=== PATIENT | male | born 1995 | race Caucasian/White ===

== ENCOUNTER 2023-01-12 13:40 | Emergency (ER) | payer OTHER ==
--- OUTSIDE RECORDS SUMMARY | 2023-01-12 13:42 | XMS REPORT | Continuity of Care Document ---
:1995 Author Organization [facility] t Address [address] [place] [address] Care Team Providers Name Role Phone JO EARL Primary Care Physician Unavailable YIMI EARL Attending Clinician Unavailable Krzysztof Tinoco PT Attending Clinician Unavailable Yimi Earl MD Attending Clinician Agustina Gerardo MD Attending Clinician Jo Dinh Attending Clinician JO EARL Attending Clinician Unavailable Radha Suarez Attending Clinician Unknown, Attending Attending Clinician Unavailable UNKNOWN, ATTENDING Attending Clinician Unavailable RADHA LARSEN Attending Clinician Unavailable Payers Payer Name Policy Type Policy Number Effective Date Expiration Date [facility] [id number] 2019 00:00:00 [facility] [id number] 2019 00:00:00 Problems Condition Condition Condition Status Onset Resolution Last Treating Co mments Source Name Details Category Date Date Treatment Clinician Date Low back Low back Disease Active Unive rs pain pain 7-18 ity of 00:00: [place] 00 [facility] Decreased Decreased Disease Active Uni vers strength strength 7-18 ity of of lower of lower 00:00: [place] extremity extremity 00 Medi jag Branch Decreased Decreased Disease Active Uni vers ROM of ROM of 7-18 ity of lower lower 00:00: [place] extremity extremity 00 [facility] jag Branch Smoker Smoker Disease Active Univers 1-15 ity of 00:00: [place] 00 Medical Branch Allergies, Adverse Reactions, Alerts Allergy Allergy Status Severity Reaction(s) Onset Inactive Treating Comm ents Source Name Type Date Date Clinician EGG DRUG Active ITCHING Univers INGREDI - ity of 00:00: [place] 00 Medical Branch Egg Propensi Active Itching 2019-0 Univers ty to -02 ity of adverse 00:00: [place] reaction 00 Medical s Branch KAOPECTA DRUG Active Hives Univers TE 5-14 ity of (KAOLIN- 00:00: [place] PECTIN) 00 Medical Branch Kaopecta Propensi Active Hives 0 Univer s te ty to 5-14 ity of (Kaolin- adverse 00:00: [place] Pectin) reaction 00 Medical s Branch Social History Social Habit Start Date Stop Date Quantity Comments Source History of 2016-12-09 Cigarette Smoker Universi ty of tobacco use 00:00:00 [place] [facility] History SDOH University o f Alcohol Frequency [place] M edical [facility] History SDOH University o f Alcohol Std [place] [facility] Drinks Branch History SDOH University o f Alcohol Binge [place] [facility] Alcohol intake 2022-04-25 2022-04-25 Current drinker Unive rsity of 00:00:00 00:00:00 of alcohol [place] [facility] (finding) Branch Tobacco use and 2022-04-12 2022-04-12 Smokeless tobacco Un iversity of exposure 00:00:00 00:00:00 non-user [facility] Alcohol Comment 2022-04-12 2022-04-12 occas Universit y of 00:00:00 00:00:00 [facility] Tobacco Comment 2022-04-12 2022-04-12 vapes daily Universi ty of 00:00:00 00:00:00 [facility] Sex [birth year] Universit y of 00:00:00 00:00:00 [facility] Smoking Status Start Date Stop Date Source Smokes tobacco daily 2022-04-12 00:00:00 Univers ity of [facility] Medications Ordered Filled Start Stop Current Ordering Indication Dosage Frequency Signature Comments Components Source Medication Medication Date Date Medication? Clinician (SIG) Name Name No known No No known Unive rs medications 04-25 medication it y of 11:52: s [place] 29 Medical Branch Procedures This patient has no known procedures. Encounters Start End Encounter Admission Attending Care Care Encounter Source Date/Time Date/Time Type Type Clinicians Facility Department ID 2022-06-19 Outpatient [facility] [id number] [place] 14:09:30 [id number] Health 2022-06-25 2022-06-25 Outpatient [facility] [id number] Univers 14:30:00 14:30:00 YIMI orantes [facility] 2022-06-21 2022-06-21 Outpatient [facility] [id number] Univers 09:00:00 09:00:00 YIMI orantes [facility] 2022-06-11 2022-06-11 Outpatient [facility] [id number] Univers 07:30:00 08:36:59 YIMI orantes [facility] 2022-06-11 2022-06-11 Ancillary Krzysztof Tinoco [facility] [id number] Univers 07:30:00 08:36:59 Visit Yimi Earl [id number] ity of [place] [id number] [facility] [id number] [address] ([facility]) 2022-06-11 2022-06-11 Outpatient [place] [id number] Univers 07:30:00 07:30:00 YIMI orantes [facility] 2022-05-11 2022-05-11 [facility] [id number] Univers 00:00:00 00:00:00 Agustina MULTISPEC [id number] ity of IALTY 4.2.7.2.686 [facility] [id number] [address] [facility] 2022-04-30 2022-04-30 Outpatient Cor[facility] [id number] Univers 08:00:00 08:00:00 YIMI orantes [facility] 2022-04-25 2022-04-25 [facility] [id number] Univers 11:58:32 23:59:00 Encounter Jo [facility] [id number] ity of [id number] [place] [id number] [facility] 809 Branch 2022-04-25 2022-04-25 [facility] [id number] Univers 11:58:11 23:59:00 Encounter Jo [facility] [id number] ity of [place] [id number] [place] [id number] [facility] 809 Branch 2022-04-25 2022-04-25 Outpatient R [facility] [id number] Univers 11:58:11 23:59:00 JO orantes [facility] 2022-04-25 2022-04-25 Office [facility] [id number] Univers 11:30:00 12:00:00 Visit Jo [facility] [id number] it y of [place] [id number] - [id number] [facility] 314 Branch 2022-04-25 2022-04-25 Outpatient R [facility] [id number] Univers 11:58:32 11:58:32 JO [facility] 2022-04-25 2022-04-25 Telephone [facility] [id number] Univers 00:00:00 00:00:00 Jo [facility] [id number] it y of [id number] - [id number] [facility] 314 Branch 2022-04-22 2022-04-22 [facility] [id number] Univers 15:00:00 15:15:00 Care Unknown, Attending ARMEN [id number] ity of [facility] 4.2.7.2.686 [facility] [id number] [place] [address] [address] [place] 2022-04-22 2022-04-22 Outpatient R UNKNOWN, ATTEND[facility] [id number] Univers 15:00:00 15:00:00 [facility] 2022-04-12 2022-04-12 Office Rajat [facility] [id number] Univers 11:00:00 11:30:00 Visit Jo [facility] [id number] emilia jolly [facility] [id number] [place] - [id number] [address] 2022-04-12 2022-04-12 Outpatient R [facility] [id number] [facility] 11:00:00 11:00:00 JO orantes [facility] Results This patient has no known results.
[2023-01-12] MEDS ORDERED: dexAMETHasone 10 MG/ML VIAL ONE (14:10)
[2023-01-12] MEDS ORDERED: HYDROCODONE/APAP 7.5/325 MG TAB ONE (14:11)
--- NOTE | 2023-01-12 14:17 | EDPHYS ---
Physician Documentation [facility] Name: Jason Barber Age: 27 yrs Sex: Male : 1995 Arrival Date: 01/12/2023 Time: 13:41 Bed 19 Private MD: ED Physician Benny Troncoso HPI: 01/12 14:13 This 27 yrs old Male presents to ER via Ambulatory with complaints of Back Pain. kb 14:14 The patient presents with pain that is acute. The symptoms are located in the left low kb back. The pain radiates to the left leg. The problem was sustained without known cause. Onset: The symptoms/episode began/occurred this morning. Modifying factors: The patient symptoms are alleviated by nothing, the patient symptoms are aggravated by any movement. Associated signs and symptoms: Pertinent positives: tingling, Pertinent negatives: incontinence, numbness, urinary retention. Severity of symptoms: At their worst the symptoms were moderate, in the emergency department the symptoms are unchanged. The patient has not experienced similar symptoms in the past. The patient has not recently seen a physician. Historical: - PMHx: 13:55 L5 S1 disc herniation; aa5 - PSHx: 13:55 None; aa5 - Immunization history:: Adult Immunizations unknown. - Social history:: Smoking status: Reported history of juuling and/or vaping. ROS: 14:13 Constitutional: Negative for fever, chills, and weight loss. kb 14:13 Abdomen/GI: Positive for nausea and vomiting, Negative for abdominal pain. 14:13 Back: Positive for pain at rest, pain with movement, radiated pain, of the left low back. 14:13 All other systems are negative. Exam: 14:13 Constitutional: This is a well developed, well nourished patient who is awake, alert, kb and in no acute distress. Head/Face: Normocephalic, atraumatic. ENT: Moist Mucous membranes Cardiovascular: Regular rate and rhythm with a normal S1 and S2. No gallops, murmurs, or rubs. No pulse deficits. Respiratory: Respirations even and unlabored. No increased work of breathing. Talking in full sentences Abdomen/GI: Soft, non-tender. No distention Skin: Warm, dry with normal turgor. Normal color. MS/ Extremity: Pulses equal, no cyanosis. Neurovascular intact. Full, normal range of motion. Neuro: Awake and alert, GCS 15, oriented to person, place, time, and situation. Moves all extremities. Normal gait. 14:13 Back: pain, that is moderate, of the left low back, ROM is normal, normal spinal alignment noted. Vital Signs: 13:47 BP 135 / 75; Pulse 105; Resp 16 S; Temp 98.5(TE); Pulse Ox 98% on R/A; Weight 76.2 kg aa5 (R); Height 5 ft. 7 in. (170.18 cm) (R); 13:47 Body Mass Index 26.31 (76.20 kg, 170.18 cm) aa5 MDM: 13:47 Patient medically screened. kb 14:13 Data reviewed: vital signs, nurses notes. kb 14:14 Differential diagnosis: strain, sciatica, Herniated disc. Counseling: I had a detailed kb discussion with the patient and/or guardian regarding: the historical points, exam findings, and any diagnostic results supporting the discharge/admit diagnosis, the need for outpatient follow up, a family practitioner, to return to the emergency department if symptoms worsen or persist or if there are any questions or concerns that arise at home. 14:15 ED course: Patient is a 27-year-old male with a history of disc herniation that kb presents for left low back pain that radiates down left leg with some tingling down the leg. Denies numbness, bowel or bladder dysfunction. On exam tenderness to left low back/upper buttock, no vertebral tenderness. Full range of motion of all extremities. Ambulates with steady gait. Educated on return precautions, verbal understanding received.. Administered Medications: 14:15 Drug: [place] (HYDROcodone-acetaminophen) (7.5 mg-325 mg) 1 tabs Route: PO; kr3 14:35 Follow up: Response: No adverse reaction; RASS: Alert and Calm (0) kr3 14:15 Drug: Decadron (dexamethasone) 10 mg Route: IM; Site: left gluteus; kr3 14:35 Follow up: Response: No adverse reaction kr3 Disposition: 14:38 Co-signature as Attending Physician, Benny Troncoso MD I reviewed the patient's care rt provided by the Advanced Practice Provider and agree with the diagnosis and treatment plan. Disposition Summary: 02/18/23 14:16 Discharge Ordered Location: Home kb Condition: Stable kb Diagnosis - Sciatica, left side kb Followup: kb - With: Emergency Department - When: As needed - Reason: Worsening of condition Followup: kb - With: Private Physician - When: 2 - 3 days - Reason: Recheck today's complaints, Continuance of care, Re-evaluation by your physician Discharge Instructions: - Discharge Summary Sheet kb - Sciatica, [id number] kb - Back Exercises, [id number] kb Forms: - Medication Reconciliation Form kb - Thank You Letter kb - Antibiotic Education kb - Prescription Opioid Use kb Prescriptions: - Prednisone 20 mg Oral Tablet - take 1 tablet by ORAL route once daily for 5 days; 5 tablet; Refills: 0, kb Product Selection Permitted - orphenadrine citrate 100 mg Oral Tablet Sustained Release - take 1 tablet by ORAL route 2 times per day As needed; 20 tablet; Refills: 0, kb Product Selection Permitted Signatures: Araseli Barlow, MATY-C SONOGRAPHY TECHNOLOGIST-Avril Amador, RN RN aa5 Benita Martinez RN RN kr3 Benny Troncoso MD MD rt
--- NOTE | 2023-01-12 14:17 | ER ---
Nurse's Notes [facility] Name: Jason Barber Age: 27 yrs Sex: Male : 1995 Arrival Date: 01/12/2023 Time: 13:41 Bed 19 Private MD: Diagnosis: Sciatica, left side Presentation: 01/12 13:47 Chief complaint: Patient states: "I've been vomiting all day and having diarrhea and aa5 vomiting made my back pain worse". pt c/o low back pain radiating to left leg. 13:47 Acuity: EUFEMIA 3 aa5 13:47 Coronavirus screen: diarrhea, vomiting. Ebola Screen: Patient denies travel to an aa5 Ebola-affected area in the 21 days before illness onset. Initial Sepsis Screen: Does the patient meet any 2 criteria? HR > 90 bpm. Does the patient have a suspected source of infection? No. Patient's initial sepsis screen is negative. 13:47 Method Of Arrival: Ambulatory aa5 13:47 Risk Assessment: Do you want to hurt yourself or someone else? Patient reports no aa5 desire to harm self or others. Onset of symptoms was January 12, 2023. Historical: - PMHx: 13:55 L5 S1 disc herniation; aa5 - PSHx: 13:55 None; aa5 - Immunization history:: Adult Immunizations unknown. - Social history:: Smoking status: Reported history of juuling and/or vaping. Screenin:33 [facility] ED Fall Risk Assessment (Adult) History of falling in the last 3 months, kr3 including since admission No falls in past 3 months (0 pts) Confusion or Disorientation No (0 pts) Intoxicated or Sedated No (0 pts) Impaired Gait Yes (1 pt) Mobility Assist Device Used No (0 pt) Altered Elimination No (0 pt) Score/Fall Risk Level 0 - 2 = Low Risk Oriented to surroundings, Maintained a safe environment, Educated pt \\T\\ family on fall prevention, incl call for assistance when getting out of bed, Assessed \\T\\ reinforced patient's understanding of fall precautions, Hourly rounding (assess needs \\T\\ fall precautionary measures) done. Abuse screen: Denies threats or abuse. Nutritional screening: No deficits noted. Tuberculosis screening: No symptoms or risk factors identified. Assessment: 14:15 General: Appears in no apparent distress. uncomfortable, Behavior is calm, cooperative, kr3 appropriate for age. Pain: Complains of pain in buttocks and left leg and left low back. Neuro: Level of Consciousness is awake, alert, obeys commands, Oriented to person, place, time, situation. Cardiovascular: No deficits noted. Respiratory: No deficits noted. GI: No deficits noted. : No deficits noted. : No deficits noted. EENT: No deficits noted. Derm: No deficits noted. Musculoskeletal: Reports pain in left leg and left low back. Vital Signs: 13:47 BP 135 / 75; Pulse 105; Resp 16 S; Temp 98.5(TE); Pulse Ox 98% on R/A; Weight 76.2 kg aa5 (R); Height 5 ft. 7 in. (170.18 cm) (R); 13:47 Body Mass Index 26.31 (76.20 kg, 170.18 cm) aa5 ED Course: 13:41 Patient arrived in ED. as 13:42 Araseli Barlow FNP-C [facility]. kb 13:42 Benny Troncoso MD is Attending Physician. kb 13:47 Arm band placed on Patient placed in an exam room, on a stretcher. aa5 13:50 Bed in low position. Call light in reach. Side rails up X 1. kr3 13:54 Triage completed. aa5 13:55 Benita Martinez, RN is Primary Nurse. kr3 14:34 No provider procedures requiring assistance completed. Patient did not have IV access kr3 during this emergency room visit. Administered Medications: 14:15 Drug: [place] (HYDROcodone-acetaminophen) (7.5 mg-325 mg) 1 tabs Route: PO; kr3 14:35 Follow up: Response: No adverse reaction; RASS: Alert and Calm (0) kr3 14:15 Drug: Decadron (dexamethasone) 10 mg Route: IM; Site: left gluteus; kr3 14:35 Follow up: Response: No adverse reaction kr3 Medication: 14:34 VIS not applicable for this client. kr3 Outcome: 14:16 Discharge ordered by . kb 14:33 Patient left the ED. kr3 14:34 Discharged to home ambulatory. kr3 14:34 Condition: stable 14:34 Discharge instructions given to patient, Instructed on discharge instructions, follow up and referral plans. medication usage, Demonstrated understanding of instructions, follow-up care, medications, Prescriptions given X 2. Signatures: Araseli Barlow, MATY-C FISHING VESSEL DECKHAND-Leora Gallardo Audri, RN RN aa5 Benita Martinez RN RN kr3
[2023-01-12 14:45] VITALS: BP 135/75; TEMP 98.5; O2SAT 98
== END 2023-01-12 14:33 | disposition home or self-care (01) ==
LOC: ER 13:40
DX: M54.32 Sciatica, left side (principal)
CPT/HCPCS: 96372; 99283; J1100